=== PATIENT | female | born 1970 | race Caucasian/White ===

== ENCOUNTER → 2024-09-27 | Outpatient (CLI) | payer OTHER, SELFPAY | END | disposition home or self-care (01) | LOC: OPBI 12:39 | PROVIDERS: PCP Internal Medicine; Referring Provider Nurse Practitioner; Visit Provider Nurse Practitioner | DX: Z12.31 Encounter for screening mammogram for malignant neoplasm of breast (principal) | CPT/HCPCS: 77063; 77067 ==

== ENCOUNTER 2025-01-31 06:24 | Day surgery (SDC) | payer OTHER, SELFPAY ==
[2025-01-31 06:49] VITALS: BP 124/89; PULSE 59; RESP 16; TEMP 35.7; O2SAT 100; BMI 30.5
--- NOTE | 2025-01-31 07:06 | PCM.PRE.AN2 ---
ASA Classification* ASA Classification ASA Classification: 2 Assessment & Plan Anesthesia* Anesthesia Assessment Anesthesia Assessment: Discussed sedation and/or anesthesia options, risks, benefits, and alternatives with patient/parents/legal guardian/POA. Questions invited. The patient/parents/legal guardian/POA seems to understand and agrees to proceed with anesthesia plan. Reviewed the physical assessment, medical history, allergy history and patient home medications list prior to surgery/procedure/anesthetic and documented any changes. Performed airway and anesthesia risk assessments. Anesthesia Type Anesthesia Type: General History Source History Obtained from:: Patient and Chart Anesthesia Focused Assessment* Temperature: 96.3 F Pulse Rate: 59 Blood Pressure: 124/89 Respiratory Rate: 16 Pulse Ox: 100 Oxygen Delivery Method: Room Air Airway Assessment Mouth opens: >3 cm Mallampati Score: II Teeth Condition: Intact Neck Range of motion (ROM): Full ROM Focused Labs Anesthesia Preop lab: CBC WBC 4.2 K/mm3 (4.4-11.0) L 09/03/24 10:09/03/24 RBC 4.67 M/mm3 (4.2-5.4) 09/03/24 10:23 09/03/24 Hgb 13.4 g/dL (12.0-15.0) 09/03/24 10:23 09/03/24 Hct 40.5 % (37-47) 09/03/24 10:23 09/03/24 Plt Count 284 K/mm3 (150-450) 09/03/24 10:23 09/03/24 CHEMISTRY Potassium 4.1 mmol/L (3.5-5.1) 09/03/24 10:09/03/24 Sodium 140 mmol/L (136-145) 09/03/24 10:23 09/03/24 Phosphorus 3.8 mg/dL (2.5-4.9) 09/03/24 10:09/03/24 BUN 14 mg/dL (7-18) 09/03/24 10:09/03/24 Creatinine 0.78 mg/dL (0.55-1.02) 09/03/24 10:09/03/24 Glucose 87 mg/dL (74-106) 09/03/24 10:09/03/24 COAG Pre-Assessment Diagnosis/Proposed Procedure Planned Operative Procedure(s): CSCOPE Anesthesia History 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 When Was Last Pacemaker Check QUESTION #4 FULL TEXT: You/Your Family Experience fever (hyperthermia) with Anesthesia Last Oral Intake Last Oral intake: Last Oral Intake NPO since 04:00 01/31/25 06:49 Meds taken in AM with sips of Yes 01/31/25 06:49 water? 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 supervisor Female Yes 01/30/25 09:10 HX of Motion Sickness No 01/30/25 09:10 HX of N/V After Surgery No 01/30/25 09:10 Non-Smoker Yes 01/30/25 09:10 Duration of Surgery greater No 01/30/25 09:10 than 60 minutes Number of Risk Factors 2 01/30/25 09:10 PONV Score Moderate Risk 01/30/25 09:10 Height & Weight Height & Weight: Anesthesia: Height & Weight Height 5 ft 4 in 01/31/25 06:49 Weight: 80.7 kg 01/31/25 06:49 Body Mass Index (BMI) 30.5 01/31/25 06:49 Respiratory Assessment Respiratory Assessment - switch operators supervisor: Respiratory Tract Infection Hx - switch operators supervisor Hx Respiratory Tract Infection No 01/30/25 09:10 STOP Sleep Apnea STOP Sleep Apnea - switch operators supervisor: STOP Sleep Apnea - switch operators supervisor Hx Hypertension No 01/30/25 09:10 Hx Sleep Apnea No 01/30/25 09:10 CPAP BIPAP Do you snore loudly (louder No 01/30/25 09:10 than talking or can be heard Do you often feel tired/ No 01/30/25 09:10 fatigued/ sleepy during daytime? Has anyone observed you stop No 01/30/25 09:10 breathing during sleep? STOP Results Negative 01/30/25 09:10 QUESTION #5 FULL TEXT : Do you snore loudly (louder than talking or can be heard through closed doors)? 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 Specify any problems Hx of Preganancy in last 3 N/A 01/30/25 09:10 Months Nurse Filling Out Transfusion NBUCHER 01/30/25 09:10 & Questions: Date: 01/30/25 01/30/25 09:10 Time: 09:10 01/30/25 09:10 Patient unable to answer at this time (ie. confused, unrespo /Reproduction History /Reproductive History - switch operators supervisor: /Reproductive Hx- switch operators supervisor Hx Now No 01/30/25 09:10 Gestational Age (in weeks): EDC: Hx Hx Para Hx Section SAB No 01/30/25 09:10 [facility] Medical History Wears glasses Non-smoker Positive colorectal cancer screening using Cologuard test High cholesterol Home Medications ?Medication ?Instructions ?Recorded ?Last Taken ?Type multivitamin (Daily Multi-Vitamin 1 tab PO DAILY 01/30/25 01/28/25 History tablet) Allergy/AdvReac Type Severity Reaction Status Date / Time No Known Allergies Allergy Verified 01/31/25 06:48 Family History (Updated 12/13/24 @ 10:[address] Meg Sung MD) Father Heart disease Mother Alcoholism Liver disease Surgical History S/P partial hysterectomy Hx of bilateral breast reduction surgery H/O tooth extraction Social History (Updated 12/13/24 @ 10:[address] 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 Physical Exam Const alert, oriented x3 and average body habitus Resp normal respiratory effort, normal air movement and clear to auscultation bilaterally Cardio regular rate, regular rhythm, no murmurs and diaphoretic
[2025-01-31 07:07] VITALS: BP 124/89; PULSE 59; RESP 16; TEMP 35.7; O2SAT 100
--- NOTE | 2025-01-31 07:30 | EGD_PTH ---
PATIENT: VITALIY LUNDY LOC: EN U#:[id number] AGE/SX: 54/F ROOM: RE01/31/[address]: Dr. Jeff Alcantara MD : 1970 BED: DIS: 01/31/2025 SPEC #: [id number] RECD: 01/31/25 11:22 STATUS: WILLY MÓNICA #: [id number] MITA: 01/31/25 07:[address]: Jeff Alcantara DEPT: SURGICAL PATHOLOGY RECD BY: Jorgito Mueller ENTERED: 01/31/25 11:23 SP TYPE: EGD BIOPSY ANUPAM DR: Dr. Yvrose Arthur MD Tissues: A - Sigmoid colon biopsy B - Sigmoid colon biopsy C - Rectum, NOS Procedures: Immunohistochemical Stains Surgery Specimen Level IV HEADER OPERATION: Colonoscopy, polypectomy PRE-OP DIAGNOSIS: Positive colorectal cancer screening using Cologuard test TISSUE SUBMITTED: A- Sigmoid biopsy, B- Sigmoid polyp, C- Rectal polyps biopsy MICROSCOPIC DIAGNOSIS A: SIGMOID COLON, BIOPSY: * Focal active colitis. * No granulomas or dysplasia seen. B: SIGMOID COLON, POLYP, BIOPSY: * Polypoid colonic mucosa with smooth muscle proliferation, consistent with hypertrophic muscularis mucosa - see note. Note: IHC for SMA confirms the smooth muscle nature of the proliferation. C: RECTUM, POLYPS, BIOPSY: * Hyperplastic polyp x3. MICROSCOPIC DESCRIPTION Slides are reviewed. These tests were developed and their performance characteristics determined by [facility]. They may not have been cleared or approved by the U.S. Food and Drug Administration. The FDA has determined that such clearance or approval is not necessary. The above immunohistochemical/dualISH markers are ordered and reviewed by the Pathologist. GROSS DESCRIPTION A. Received in fixative is one container labeled with the patient's name and designated Sigmoid biopsy. The specimen consists of one irregular fragment of light cota soft tissue that measures 0.7 x 0.3 x 0.1 cm. The specimen is totally submitted in one cassette. B. Received in fixative is one container labeled with the patient's name and designated Sigmoid polyp. The specimen consists of two irregular fragments of light cota soft tissue that in aggregate measure 0.7 x 0.3 x 0.2 cm. The specimen is totally submitted in one cassette. C. Received in fixative is one container labeled with the patient's name and designated Rectal polyps biopsy. The specimen consists of two irregular fragments of light cota soft tissue that in aggregate measure 0.9 x 0.5 x 0.1 cm. The specimen is totally submitted in one cassette. mr 01/31/2025 CPT:93797u3,17018
--- NOTE | 2025-01-31 07:33 | PCM.HP.BLA ---
History and Physical Date of Admission: 01/31/25 Date of Service: 11/19/24 MR#: [id number] Acct: [id number] Name: VITALIY LUNDY Rep #: [id number] : 1970 Provider: Dr. Jeff Alcantara MD Age/Sex: 54/F Location: [facility] Status: Signed Intake Vital Signs 09/07/2407:57 11/19/2408:05 Height 5 ft 4 in 5 ft 4 in Weight: 176 lb 181 lb 2 oz BMI 30.2 31.1 BP 118/76 133/95 H Blood Pressure Location Lt brachial Rt brachial Position Sitting Sitting Respiration 16 18 Pulse 53 L 60 Pulse Source Monitor Monitor Temp 97.9 F 97.6 F L Temp Source Temporal Temporal Pulse Oximetry (%) 97 99 Oxygen Delivery Method room air room air Intake Visit Reasons: POSITIVE COLOGUARD Chief Complaint: positive cologuard Is patient in pain?: No Allergies No Known Allergies Allergy (Unverified 11/19/24 08:10) Medications ?Medication ?Instructions ?Recorded ?Confirmed ?Type NK 09/07/24 11/19/24 History PFSH Medical History (Updated 11/19/24 @ 13:[address] Jeff Alcantara MD) Positive colorectal cancer screening using Cologuard test High cholesterol Surgical History Hx of bilateral breast reduction surgery H/O tooth extraction Family History Father Heart disease Social History household members: spouse housing: house current occupational status: employed current occupation: [email or web address] Smoking Status: Never smoker alcohol intake: current alcohol intake frequency: holidays/special occasions only substance use type: does not use what type of physical activity do you participate in: none seatbelt use: always do you feel safe at home: Yes HPI HPI HPI: Patient is a 54-year-old female who presents for need to schedule diagnostic colonoscopy secondary to positive Cologuard testing. They are referred for surgical consultation from Ms. Sabina Ferraro NP and Dr. Arthur. Patient has not had prior colonoscopy. She does confirm she is completed prior Cologuard testing that was negative and estimates the last such test was obtained 1.5 years ago. Patient has no personal history of inflammatory bowel disease, diverticulitis, or other GI diagnoses. They describe their bowel habits as normal. They have approximately 2 bowel movements per day and spend roughly minutes on the toilet without significant straining. They have noticed recent bleeding in the way of spotting but otherwise has not noticed any dark stools. With this recognition they believe they have a history of hemorrhoids originating with a pressed many years ago. They deny any experience of bulging, pain, or itching. They do not regularly take fiber supplements. Patient has a family history of IBS and possible celiac disease with her daughter but expressly deny any history of colon cancer, diverticulitis, inflammatory bowel disease. The patient's weight is stable. The patient is not prescribed anticoagulants/blood thinners. Relevant prior abdominal surgical history includes: None Patient does not have a significant history of GERD/heartburn [] ROS General General: No weight change, appetite, fatigue, colon cancer, breast cancer or weakness HEENT HEENT: No difficulty swallowing, eye injury, eye surgery, swollen glands or hoarseness Endo Endocrine: No thyroid disease, diabetes mellitus, thyroid cancer, Hair loss, heat intolerance or cold intolerance Skin Skin: No rash or changing moles Musc Musculoskeletal: No back problems, arthritis, rheumatoid arthritis, gout or joint pain Cardio Cardiovascular: No murmur, pacemaker, heart disease, atrial fibrillation, high blood pressure, heart attack, heart stent, palpitations, shortness of breat with exertion or chest pain Psych Psychiatric: No depression, anxiety or hearing voices Resp Respiratory: No shortness of breath, No sleep apnea, No cough, No COPD, No asthma, No emphysema and No wheezing Gastro Gastrointestinal: No abdominal pain, No nausea or vomiting, No diarrhea, No constipation, No blood in stool, No acid reflux, Yes hemorrhoids, No ulcers, No gallbladder problem and No black,tarry stools Jose Hematologic: No blood thinners, No blood disorders, No bleeding, No anemia and No blood clots Neuro Neurologic: No numbness, No tingling and No weakness Exam Const General: cooperative and anxious Orientation: alert, awake and oriented x3 Resp Effort & Inspection: normal respiratory effort GI Other: Well-healed laparoscopy scar infraumbilical, several abdominal striae, otherwise no visible herniation, soft, nondistended, nontender to palpation x 4 quadrants Assessment and Plan Assessment and Plan (1) Positive colorectal cancer screening using Cologuard test: Status: Acute Comment: Patient is a 54-year-old female with no prior history of screening colonoscopy but prior history of negative Cologuard testing who presents for scheduling of diagnostic colonoscopy after recent Cologuard positivity. She does confess to some spotting with bowel movements which is suggestive of hemorrhoid activity. She otherwise denies concerning symptoms/features with her bowel activity. There is no history of colon cancer and patient therefore appears to be at average risk for colon cancer. Still, I provided a strong recommendation to proceed with colonoscopy despite patient's reluctance. She shares that she was under the impression this study was to be completed today, however, I underscored to her the need for a bowel prep and a thorough bowel prep at that. I thus described our split bowel prep and other expectations for the procedure?including reporting of any specimens. Patient states that she may not be able to schedule just yet as she is starting a new job and will not know her schedule limitations until she is fully in her position. Plan: Plan will be to complete colonoscopy on first mutually agreeable date under local MAC. Pre-procedure prep discussed and paper instructions provided. Patient is also made aware that she will need to have a jukebox route driver with her the day of the procedure. I have examined the patient and the H&P has been reviewed. There are no clinical changes since date of exam. Patient confirms she completed prep for today's procedure and that her output is now clear. We reviewed instructions for holding any aspirin or ibuprofen in the event that a biopsy was performed. Patient requests and any results are simply related to her following the procedure. Will now proceed to endoscopy suite for planned colonoscopy given the history of a positive Cologuard test.
[2025-01-31 09:00] VITALS: BP 121/87; BP 124/89; PULSE 66; RESP 18; TEMP 36.3; O2SAT 99
[2025-01-31 09:05] VITALS: BP 124/89; BP 125/82; PULSE 66; RESP 16; O2SAT 100
--- NOTE | 2025-01-31 09:08 | PCM.POST.ANE ---
Anesthesia: Postop Eval I Current Vital Signs Temperature: 97.4 F Pulse Rate: 67 Blood Pressure: 121/87 Respiratory Rate: 16 Pulse Ox: 100 Oxygen Delivery Method: Room Air Assessment Airway patent: Yes Spontaneous unlabored respirations: Yes Mental status: Asleep nausea: No Vomiting: No Anesthesia Complication: No Fluid Hydration Crystalloid volume administer (ml): 90 Total IV fluid infused: 90 Progress Note Anesthesia document: Postop Eval 1 completed: Yes
--- NOTE | 2025-01-31 09:09 | OP.CCLET_ITS ---
01/31/2025 Yvrose Arthur MD [address] [place] [address] [place] [address] Re : Colonoscopy procedure for Beena Dudley Dear Dr. Arthur This procedure was performed on January. My impressions and recommendations are as follows: Impressions : - Diverticulosis in the sigmoid colon. No specimens collected. - Nodular mucosa in the sigmoid colon. Biopsied. - One 10 mm polyp in the sigmoid colon, removed with a hot snare. Resected and retrieved. - Three 3 mm, non-bleeding polyps in the rectum. Biopsied. - The examination was otherwise normal on direct and retroflexion views. Recommendations : - Discharge patient to home (via wheelchair). - High fiber diet today. - No aspirin, ibuprofen, naproxen, or other non-steroidal anti-inflammatory drugs for 2 days after biopsy. - Await pathology results. - Repeat colonoscopy date to be determined after pending pathology results are reviewed for surveillance based on pathology results. - Telephone my office for pathology results in 1 week. My findings are described in the full procedure note, which is enclosed. If I can be of further assistance, please feel free to contact me at Doctor phone number(s): , Work: . Sincerely, Jeff Alcantara MD 01/31/2025 9:08:38 AM This report has been signed electronically.
--- NOTE | 2025-01-31 09:09 | OP.COLON_ITS ---
Patient Name: Beena Dudley Procedure Date: 01/31/2025 7:45 AM Date of : 1970 Age: 54 Procedure: Colonoscopy Indications: Positive Cologuard test Providers: Jeff Alcantara MD Referring MD: Yvrose Arthur MD Medicines: See the Anesthesia note for documentation of the administered medications Patient Profile: Last Colonoscopy: none. The patient's first colonoscopy is today. Complications: No immediate complications. Estimated blood loss: Minimal. Procedure: Pre-Anesthesia Assessment: - The heart rate, respiratory rate, oxygen saturations, blood pressure, adequacy of pulmonary ventilation, and response to care were monitored throughout the procedure. After I obtained informed consent, the scope was passed under direct vision. Throughout the procedure, the patient's blood pressure, pulse, and oxygen saturations were monitored continuously. The colonoscope was introduced through the anus and advanced to the cecum, identified by appendiceal orifice and ileocecal valve. The colonoscopy was technically difficult and complex due to a tortuous colon. Successful completion of the procedure was aided by withdrawing and reinserting the scope and using scope torsion. The patient tolerated the procedure well. The quality of the bowel preparation was good. Scope In: 7:56:54 AM Scope Withdrawal Time 0 hours 29 minutes 28 seconds Scope Out: 8:53:12 AM Total Procedure Duration Time 0 hours 56 minutes 18 seconds Findings: The perianal and digital rectal examinations were normal. Multiple small and large-mouthed diverticula were found in the sigmoid colon. No biopsies or other specimens were collected for this exam. A localized area of mildly nodular mucosa was found in the sigmoid colon. Biopsies were taken with a cold forceps for histology. Estimated blood loss was minimal. A 10 mm polyp was found in the sigmoid colon. The polyp was semi-pedunculated. The polyp was removed with a hot snare. Resection and retrieval were complete. Estimated blood loss: none. Three semi-sessile, non-bleeding polyps were found in the rectum. The polyps were 3 mm in size. Biopsies were taken with a cold forceps for histology. Estimated blood loss was minimal. The exam was otherwise without abnormality on direct and retroflexion views. Impression: - Diverticulosis in the sigmoid colon. No specimens collected. - Nodular mucosa in the sigmoid colon. Biopsied. - One 10 mm polyp in the sigmoid colon, removed with a hot snare. Resected and retrieved. - Three 3 mm, non-bleeding polyps in the rectum. Biopsied. - The examination was otherwise normal on direct and retroflexion views. Recommendation: - Discharge patient to home (via wheelchair). - High fiber diet today. - No aspirin, ibuprofen, naproxen, or other non-steroidal anti-inflammatory drugs for 2 days after biopsy. - Await pathology results. - Repeat colonoscopy date to be determined after pending pathology results are reviewed for surveillance based on pathology results. - Telephone my office for pathology results in 1 week. Procedure Code(s): --- Professional --- 37638, Colonoscopy, flexible; with removal of tumor(s), polyp(s), or other lesion(s) by snare technique 27211, 59, Colonoscopy, flexible; with biopsy, single or multiple Diagnosis Code(s): --- Professional --- K63.89, Other specified diseases of intestine D12.5, Benign neoplasm of sigmoid colon D12.8, Benign neoplasm of rectum R19.5, Other fecal abnormalities K57.30, Diverticulosis of large intestine without perforation or abscess without bleeding CPT copyright 2021 [employer]. All rights reserved. The codes documented in this report are preliminary and upon track rider review may be revised to meet current compliance requirements. Jeff Alcantara MD 01/31/2025 9:08:38 AM This report has been signed electronically. Number of Addenda: 0 Note Initiated On: 01/31/2025 7:45 AM
[2025-01-31 09:10] VITALS: BP 113/80; BP 121/87; BP 124/89; PULSE 57; PULSE 67; RESP 16; TEMP 36.2; TEMP 36.3; O2SAT 100
[2025-01-31 09:28] VITALS: BP 124/89
--- NOTE | 2025-01-31 11:24 | PCM.POSTANE2 ---
Anesthesia Postop Eval I Sum Postop Eval Completion status Anesthesia document: Postop Eval 1 completed: Yes Anesthesia Postop Eval I Summary Anesthesia Postop Eval I Summary: Anesthesia Postop Eval I: Assessment Summary Airway patent Yes 01/31/25 09:10 [email or web address] Spontaneous unlabored Yes 01/31/25 09:10 [email or web address] respirations Mental status Asleep 01/31/25 09:10 [email or web address] nausea No 01/31/25 09:10 [email or web address] Vomiting No 01/31/25 09:10 [email or web address] Anesthesia Postop Eval I: Fluid Summary Crystalloid volume administer 90 01/31/25 09:10 [email or web address] (ml) Colloids volume administered ( ml) Blood Product volume administered (ml) Total IV fluid infused 90 01/31/25 09:10 [email or web address] Anesthesia Postop Eval I: Summary Notes Anesthesia Complication No 01/31/25 09:10 [email or web address] Anesthesia Complication Comment: Post-operative progress note Anesthesia: Postop Eval II Evaluation Mental status: Awake Pain Level: 0 nausea: No Vomiting: No Complications Anesthesia Complication: No
== END 2025-01-31 10:19 | disposition home or self-care (01) ==
LOC: EN 06:24 → AC 06:26
PROVIDERS: PCP Internal Medicine; Referring Provider Internal Medicine; Visit Provider Surgery
PROC: 0DJD8ZZ Inspection of Lower Intestinal Tract, Via Natural or Artificial Opening Endoscopic (ICD-10-PCS; CPT 45378; principal; 2025-01-31 07:25)
DX: R19.5 Other fecal abnormalities (principal); E78.00 Pure hypercholesterolemia, unspecified; D12.8 Benign neoplasm of rectum; Q43.8 Other specified congenital malformations of intestine; K63.5 Polyp of colon; K63.89 Other specified diseases of intestine
CPT/HCPCS: 45385; 45380; 88305; A4216; J2405

== ENCOUNTER 2025-03-28 07:15 | Day surgery (SDC) | payer OTHER, SELFPAY ==
[2025-03-28] VITALS (9 sets, daily range): BP systolic 103–141; BP diastolic 64–99; PULSE 63–72; RESP 16–18; TEMP 36.1–36.6; O2SAT 97–100; BMI 29.5
--- NOTE | 2025-03-28 07:38 | HP.PCM_ITS ---
History and Physical Date of Admission: 03/28/25 History and Physical Date of Admission: 01/31/25 Date of Service: 11/19/24#: [id number] Acct: [id number] Name: VITALIY LUNDY Rep #: [id number] : 1970 Provider: Dr. Jeff Alcantara MD Age/Sex: 54/F Location: [facility] Status: Signed Intake Vital Signs 09/07/2407:57 11/19/2408:05 Height 5 ft 4 in 5 ft 4 in Weight: 176 lb 181 lb 2 oz BMI 30.2 31.1 BP 118/76 133/95 H Blood Pressure Location Lt brachial Rt brachial Position Sitting Sitting Respiration 16 18 Pulse 53 L 60 Pulse Source Monitor Monitor Temp 97.9 F 97.6 F L Temp Source Temporal Temporal Pulse Oximetry (%) 97 99 Oxygen Delivery Method room air room air Intake Visit Reasons: POSITIVE COLOGUARD Chief Complaint: positive cologuard Is patient in pain?: No Allergies No Known Allergies Allergy (Unverified 11/19/24 08:10) Medications ?Medication ?Instructions ?Recorded ?Confirmed ?Type NK 09/07/24 11/19/24 History PFSH Medical History (Updated 11/19/24 @ 13:[address] Jeff Alcantara MD) Positive colorectal cancer screening using Cologuard test High cholesterol Surgical History Hx of bilateral breast reduction surgery H/O tooth extraction Family History Father Heart disease Social History household members: spouse housing: house current occupational status: employed current occupation: [employer]- [employer] Smoking Status: Never smoker alcohol intake: current alcohol intake frequency: holidays/special occasions only substance use type: does not use what type of physical activity do you participate in: none seatbelt use: always do you feel safe at home: Yes HPI HPI HPI: Patient is a 54-year-old female who presents for need to schedule diagnostic colonoscopy secondary to positive Cologuard testing. They are referred for surgical consultation from Ms. Sabina Ferraro NP and Dr. Arthur. Patient has not had prior colonoscopy. She does confirm she is completed prior Cologuard testing that was negative and estimates the last such test was obtained 1.5 years ago. Patient has no personal history of inflammatory bowel disease, diverticulitis, or other GI diagnoses. They describe their bowel habits as normal. They have approximately 2 bowel movements per day and spend roughly minutes on the toilet without significant straining. They have noticed recent bleeding in the way of spotting but otherwise has not noticed any dark stools. With this recognition they believe they have a history of hemorrhoids origina ting with a pressed many years ago. They deny any experience of bulging, pain, or itching. They do not regularly take fiber supplements. Patient has a family history of IBS and possible celiac disease with her daughter but expressly deny any history of colon cancer, diverticulitis, inflammatory bowel disease. The patient's weight is stable. The patient is not prescribed anticoagulants/blood thinners. Relevant prior abdominal surgical history includes: None Patient does not have a significant history of GERD/heartburn [] ROS General General: No weight change, appetite, fatigue, colon cancer, breast cancer or weakness HEENT HEENT: No difficulty swallowing, eye injury, eye surgery, swollen glands or hoarseness Endo Endocrine: No thyroid disease, diabetes mellitus, thyroid cancer, Hair loss, heat intolerance or cold intolerance Skin Skin: No rash or changing moles Musc Musculoskeletal: No back problems, arthritis, rheumatoid arthritis, gout or joint pain Cardio Cardiovascular: No murmur, pacemaker, heart disease, atrial fibrillation, high blood pressure, heart attack, heart stent, palpitations, shortness of breat with exertion or chest pain Psych Psychiatric: No depression, anxiety or hearing voices Resp Respiratory: No shortness of breath, No sleep apnea, No cough, No COPD, No asthma, No emphysema and No wheezing Gastro Gastrointestinal: No abdominal pain, No nausea or vomiting, No diarrhea, No constipation, No blood in stool, No acid reflux, Yes hemorrhoids, No ulcers, No gallbladder problem and No black,tarry stools Jose Hematologic: No blood thinners, No blood disorders, No bleeding, No anemia and No blood clots Neuro Neurologic: No numbness, No tingling and No weakness Exam Const General: cooperative and anxious Orientation: alert, awake and oriented x3 Resp Effort & Inspection: normal respiratory effort GI Other: Well-healed laparoscopy scar infraumbilical, several abdominal striae, otherwise no visible herniation, soft, nondistended, nontender to palpation x 4 quadrants Assessment and Plan Assessment and Plan (1) Positive colorectal cancer screening using Cologuard test: Status: Acute Comment: Patient is a 54-year-old female with no prior history of screening colonoscopy but prior history of negative Cologuard testing who presents for scheduling of diagnostic colonoscopy after recent Cologuard positivity. She does confess to some spotting with bowel movements which is suggestive of hemorrhoid activity. She otherwise denies concerning symptoms/features with her bowel activity. There is no history of colon cancer and patient therefore appears to be at average risk for colon cancer. Still, I provided a strong recommendation to proceed with colonoscopy despite patient's reluctance. She shares that she was under the impression this study was to be completed today, however, I underscored to her the need for a bowel prep and a thorough bowel prep at that. I thus described our split bowel prep and other expectations for the procedure?including reporting of any specimens. Patient states that she may not be able to schedule just yet as she is starting a new job and will not know her schedule limitations until she is fully in her position. Plan: Plan will be to complete colonoscopy on first mutually agreeable date under local MAC. Pre-procedure prep discussed and paper instructions provided. Patient is also made aware that she will need to have a recycle driver with her the day of the procedure. I have examined the patient and the H&P has been reviewed. There are no clinical changes since date of exam. Patient confirms she completed prep for today's procedure and that her output is now clear. We reviewed instructions for holding any aspirin or ibuprofen in the event that a biopsy was performed. Patient requests and any results are simply related to her following the procedure. Will now proceed to endoscopy suite for planned colonoscopy given the history of a positive Cologuard test. I have examined the patient the following changes are noted: Patient reports today for make-up colonoscopy after her initial colonoscopy was aborted in January of this year due to incomplete prep. She reports compliance with my request to begin clear liquid diet earlier and confirms she completed prep for today's procedure. However, she reports that her output remains somewhat brown and full of sediment. Therefore I have requested an enema be performed. Outside of these immediate issues patient reports a stable state of health. Provided patient is able to obtain appropriate cleanout we will plan to proceed for repeat colonoscopy with biopsy as indicated. Consents were confirmed.
[2025-03-28] MEDS: Lactated Ringers 1,000 ML 15 ML IV (07:53)
--- NOTE | 2025-03-28 07:57 | PCM.PRE.AN2 ---
ASA Classification* ASA Classification ASA Classification: 1 Assessment & Plan Anesthesia* Anesthesia Assessment Anesthesia Assessment: Discussed sedation and/or anesthesia options, risks, benefits, and alternatives with patient/parents/legal guardian/POA. Questions invited. The patient/parents/legal guardian/POA seems to understand and agrees to proceed with anesthesia plan. Reviewed the physical assessment, medical history, allergy history and patient home medications list prior to surgery/procedure/anesthetic and documented any changes. Performed airway and anesthesia risk assessments. Anesthesia Type Anesthesia Type: MAC History Source History Obtained from:: Patient and Chart Anesthesia Focused Assessment* Temperature: 97.8 F Pulse Rate: 64 Blood Pressure: 141/99 Respiratory Rate: 16 Pulse Ox: 100 Oxygen Delivery Method: Room Air Airway Assessment Mouth opens: >3 cm Mallampati Score: IV Teeth Condition: Upper (Patient has an implant at tooth #12. Rest are tight.) Neck Range of motion (ROM): Full ROM Focused Labs Anesthesia Preop lab: CBC WBC 4.2 K/mm3 (4.4-11.0) L 09/03/24 10:09/03/24 RBC 4.67 M/mm3 (4.2-5.4) 09/03/24 10:09/03/24 Hgb 13.4 g/dL (12.0-15.0) 09/03/24 10:09/03/24 Hct 40.5 % (37-47) 09/03/24 10:23 09/03/24 Plt Count 284 K/mm3 (150-450) 09/03/24 10:23 09/03/24 CHEMISTRY Potassium 4.1 mmol/L (3.5-5.1) 09/03/24 10:23 09/03/24 Sodium 140 mmol/L (136-145) 09/03/24 10:09/03/24 Phosphorus 3.8 mg/dL (2.5-4.9) 09/03/24 10:09/03/24 BUN 14 mg/dL (7-18) 09/03/24 10:09/03/24 Creatinine 0.78 mg/dL (0.55-1.02) 09/03/24 10:09/03/24 Glucose 87 mg/dL (74-106) 09/03/24 10:09/03/24 COAG Pre-Assessment Diagnosis/Proposed Procedure Planned Operative Procedure(s): Colonoscopy Anesthesia History Anesthesia History - field representative: Anesthesia History - field representative Hx Hospitalization No 03/26/25 13:27 Any Problems With Anesthesia No 03/26/25 13:27 Cholinesterase deficiency No 03/26/25 13:27 You/Your Family Experience No 03/26/25 13:27 fever (hyperthermia) with Relationship Recent Exposure to Contagious No 03/28/25 07:41 Disease Does patient have nerve No 03/26/25 13:27 stimulator Patient instructed to have device shut off --Does patient have Pacemaker No 03/28/25 07:41 or ICD? When Was Last Pacemaker Check QUESTION #4 FULL TEXT: You/Your Family Experience fever (hyperthermia) with Anesthesia Last Oral Intake Last Oral intake: Last Oral Intake NPO since 06:00 03/28/25 07:41 Meds taken in AM with sips of No 03/28/25 07:41 water? Meds patient instructed to take am of surgery Any additional information?: Yes NPO since: 06:00 (Patient had water at 6 AM) PONV PONV - field representative: PONV - field representative Female Yes 03/26/25 13:27 HX of Motion Sickness No 03/26/25 13:27 HX of N/V After Surgery No 03/26/25 13:27 Non-Smoker Yes 03/26/25 13:27 Duration of Surgery greater No 03/26/25 13:27 than 60 minutes Number of Risk Factors 2 03/26/25 13:27 PONV Score Moderate Risk 03/26/25 13:27 Height & Weight Height & Weight: Anesthesia: Height & Weight Height 5 ft 4 in 03/28/25 07:41 Weight: 77.9 kg 03/28/25 07:41 Body Mass Index (BMI) 29.5 03/28/25 07:41 Respiratory Assessment Respiratory Assessment - field representative: Respiratory Tract Infection Hx - field representative Hx Respiratory Tract Infection No 03/26/25 13:27 STOP Sleep Apnea STOP Sleep Apnea - field representative: STOP Sleep Apnea - field representative Hx Hypertension No 03/26/25 13:27 Hx Sleep Apnea No 03/26/25 13:27 CPAP BIPAP Do you snore loudly (louder No 03/26/25 13:27 than talking or can be heard Do you often feel tired/ No 03/26/25 13:27 fatigued/ sleepy during daytime? Has anyone observed you stop No 03/26/25 13:27 breathing during sleep? STOP Results Negative 03/26/25 13:27 QUESTION #5 FULL TEXT : Do you snore loudly (louder than talking or can be heard through closed doors)? 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 Specify any problems Hx of Preganancy in last 3 No 03/26/25 13:27 Months Nurse Filling Out Transfusion VCHRISTIN 03/26/25 13:27 & Questions: Date: 03/26/25 03/26/25 13:27 Time: 13:28 03/26/25 13:27 Patient unable to answer at this time (ie. confused, unrespo /Reproduction History /Reproductive History - field representative: /Reproductive Hx- field representative Hx Now No 03/26/25 13:27 Gestational Age (in weeks): EDC: Hx Hx Para Hx Section SAB No 03/26/25 13:27 Active Medications Active Medications: Current Medications Generic Name Dose Route Start Last Admin Trade Name Freq PRN Reason Stop Dose Admin Lactated Ringer's 1,000 mls @ 15 mls/hr 03/28/25 07:30 03/28/25 07:53 IV 15 mls/hr .Q48H MOISE Administration PFSH Medical History Wears glasses Non-smoker Positive colorectal cancer screening using Cologuard test High cholesterol Home Medications ?Medication ?Instructions ?Recorded ?Last Taken ?Type multivitamin (Daily Multi-Vitamin 1 tab PO DAILY 01/30/25 01/28/25 History tablet) Allergy/AdvReac Type Severity Reaction Status Date / Time No Known Allergies Allergy Verified 03/28/25 07:40 Family History Father Heart disease Mother Alcoholism Liver disease Surgical History Hx of colonoscopy S/P partial hysterectomy Hx of bilateral breast reduction surgery H/O tooth extraction Social History household members: spouse housing: house current occupational status: employed 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
--- NOTE | 2025-03-28 08:30 | COLBX_PTH ---
PATIENT: VITALIY LUNDY LOC: EN U#:[id number] AGE/SX: 54/F ROOM: RE03/28/[address]: Dr. Jeff Alcantara MD : 1970 BED: DIS: 03/28/2025 SPEC #: [id number] RECD: 03/28/25 10:14 STATUS: WILLY MÓNICA #: [id number] MITA: 03/28/25 08:[address]: Jeff Alcantara DEPT: SURGICAL PATHOLOGY RECD BY: Jorgito Mueller ENTERED: 03/28/25 11:44 SP TYPE: COLON BX OTHR DR: Dr. Yvrose Arthur MD Tissues: A - Sigmoid colon biopsy Procedures: Surgery Specimen Level IV HEADER OPERATION: Colonoscopy, biopsy PRE-OP DIAGNOSIS: Positive colorectal cancer screening using Cologuard test TISSUE SUBMITTED: A- Irregular sigmoid mucosa biopsy MICROSCOPIC DIAGNOSIS A. Sigmoid colon, irregular mucosa, biopsy: * Mild lamina propria edema with focal crypt degenerative change - see note. * Negative for neoplasia (deeper sections examined). * Note: The histologic changes are mild and raise consideration of ischemia vs bowel prep artifact. Recommend correlation with clinical and endoscopic findings. MICROSCOPIC DESCRIPTION Slides are reviewed. GROSS DESCRIPTION A. Received in formalin in a container labeled with the patient's name, date of , and irregular sigmoid mucosa biopsy is a 0.3 x 0.2 x 0.2 cm fragment of cota-pink mucosal tissue. Submitted in toto in A1. [facility] 03-28-2025 CPT:87111
--- NOTE | 2025-03-28 09:39 | OP.COLON_ITS ---
Patient Name: Beena Dudley Procedure Date: 03/28/2025 8:31 AM Date of : 1970 Age: 54 Procedure: Colonoscopy Indications: Positive Cologuard test Providers: Jeff Alcantara MD Referring MD: Yvrose Arthur MD Medicines: See the Anesthesia note for documentation of the administered medications Patient Profile: Last Colonoscopy: none. The patient's first colonoscopy is today. Complications: No immediate complications. Estimated blood loss: Minimal. Procedure: Pre-Anesthesia Assessment: - The heart rate, respiratory rate, oxygen saturations, blood pressure, adequacy of pulmonary ventilation, and response to care were monitored throughout the procedure. After I obtained informed consent, the scope was passed under direct vision. Throughout the procedure, the patient's blood pressure, pulse, and oxygen saturations were monitored continuously. The colonoscope was introduced through the anus and advanced to the cecum, identified by the appendiceal orifice, ileocecal valve and palpation. The colonoscopy was technically difficult and complex due to multiple diverticula in the colon and a tortuous colon. Successful completion of the procedure was aided by changing the patient to a supine position, using manual pressure and using scope torsion. The patient tolerated the procedure fairly well. The quality of the bowel preparation was adequate to identify polyps greater than 5 mm in size. Scope In: 8:46:25 AM Scope Withdrawal Time 0 hours 7 minutes 33 seconds Scope Out: 9:29:10 AM Total Procedure Duration Time 0 hours 42 minutes 45 seconds Findings: The perianal and digital rectal examinations were normal. Many small and large-mouthed diverticula were found in the sigmoid colon. No biopsies or other specimens were collected for this exam. The sigmoid colon was moderately tortuous. No biopsies or other specimens were collected for this exam. Localized mild inflammation characterized by erythema was found in the sigmoid colon. Biopsies were taken with a cold forceps for histology. Estimated blood loss was minimal. The exam was otherwise without abnormality on direct and retroflexion views. Impression: - Diverticulosis in the sigmoid colon. No specimens collected. - Tortuous colon. No specimens collected. - Localized mild inflammation was found in the sigmoid colon secondary to colitis. Biopsied. - The examination was otherwise normal on direct and retroflexion views. Recommendation: - Discharge patient to home (via wheelchair). - High fiber diet today. - No aspirin, ibuprofen, naproxen, or other non-steroidal anti-inflammatory drugs for 2 days after biopsy. - Await pathology results. - Repeat colonoscopy date to be determined after pending pathology results are reviewed for surveillance based on pathology results. Procedure Code(s): --- Professional --- 04936, Colonoscopy, flexible; with biopsy, single or multiple Diagnosis Code(s): --- Professional --- K52.9, Noninfective gastroenteritis and colitis, unspecified R19.5, Other fecal abnormalities K57.30, Diverticulosis of large intestine without perforation or abscess without bleeding Q43.8, Other specified congenital malformations of intestine CPT copyright 2021 [employer]. All rights reserved. The codes documented in this report are preliminary and upon regional director review may be revised to meet current compliance requirements. Jeff Alcantara MD 03/28/2025 9:38:50 AM This report has been signed electronically. Number of Addenda: 0 Note Initiated On: 03/28/2025 8:31 AM
--- NOTE | 2025-03-28 09:39 | OP.CCLET_ITS ---
03/28/2025 Yvrose Arthur MD [address] [place] [address] [place] [address] Re : Colonoscopy procedure for Beena Dudley Dear Dr. Arthur This procedure was performed on March. My impressions and recommendations are as follows: Impressions : - Diverticulosis in the sigmoid colon. No specimens collected. - Tortuous colon. No specimens collected. - Localized mild inflammation was found in the sigmoid colon secondary to colitis. Biopsied. - The examination was otherwise normal on direct and retroflexion views. Recommendations : - Discharge patient to home (via wheelchair). - High fiber diet today. - No aspirin, ibuprofen, naproxen, or other non-steroidal anti-inflammatory drugs for 2 days after biopsy. - Await pathology results. - Repeat colonoscopy date to be determined after pending pathology results are reviewed for surveillance based on pathology results. My findings are described in the full procedure note, which is enclosed. If I can be of further assistance, please feel free to contact me at Doctor phone number(s): , Work: . Sincerely, Jeff Alcantara MD 03/28/2025 9:38:50 AM This report has been signed electronically.
--- NOTE | 2025-03-28 09:42 | PCM.POST.ANE ---
Anesthesia: Postop Eval I Current Vital Signs Temperature: 97 F Pulse Rate: 72 Blood Pressure: 115/77 Respiratory Rate: 16 Pulse Ox: 97 Oxygen Delivery Method: Room Air Assessment Airway patent: Yes Spontaneous unlabored respirations: Yes Mental status: Asleep nausea: No Vomiting: No Anesthesia Complication: No Fluid Hydration Crystalloid volume administer (ml): 700 Total IV fluid infused: 700 Progress Note Anesthesia document: Postop Eval 1 completed: Yes
--- NOTE | 2025-03-28 11:08 | PCM.POSTANE2 ---
Anesthesia Postop Eval I Sum Postop Eval Completion status Anesthesia document: Postop Eval 1 completed: Yes Anesthesia Postop Eval I Summary Anesthesia Postop Eval I Summary: Anesthesia Postop Eval I: Assessment Summary Airway patent Yes 03/28/25 09:43 [email or web address] Spontaneous unlabored Yes 03/28/25 09:43 [email or web address] respirations Mental status Asleep 03/28/25 09:43 [email or web address] nausea No 03/28/25 09:43 [email or web address] Vomiting No 03/28/25 09:43 [email or web address] Anesthesia Postop Eval I: Fluid Summary Crystalloid volume administer 700 03/28/25 09:43 [email or web address] (ml) Colloids volume administered ( ml) Blood Product volume administered (ml) Total IV fluid infused 700 03/28/25 09:43 [email or web address] Anesthesia Postop Eval I: Summary Notes Anesthesia Complication No 03/28/25 09:43 [email or web address] Anesthesia Complication Comment: Post-operative progress note Anesthesia: Postop Eval II Evaluation Mental status: Awake Pain Level: 0 nausea: No Vomiting: No
== END 2025-03-28 10:37 | disposition home or self-care (01) ==
LOC: EN 07:16 → AC 07:17
PROVIDERS: PCP Internal Medicine; Referring Provider Internal Medicine; Visit Provider Surgery
PROC: 0DJD8ZZ Inspection of Lower Intestinal Tract, Via Natural or Artificial Opening Endoscopic (ICD-10-PCS; CPT 45378; principal; 2025-03-28 08:25)
DX: K52.9 Noninfective gastroenteritis and colitis, unspecified (principal); Q43.8 Other specified congenital malformations of intestine; R19.5 Other fecal abnormalities
CPT/HCPCS: 45380; 88305; J2405